=== PATIENT | male | born 1985 | race Caucasian/White ===

== ENCOUNTER → 2023-12-20 01:46 | Outpatient (CLI) | payer OTHER, SELFPAY ==
--- NOTE | 2023-12-20 11:34 | DI.RAD_ITS ---
Exam(s) XR KNEE LT 2V AP,LAT EXAM: XR KNEE LT 2V AP,LAT CLINICAL HISTORY: [id number], LT KNEE PAIN. TECHNIQUE: 2D digital imaging was performed. COMPARISON: No exams were available for comparison FINDINGS: Two views. No evidence of fracture. Small amount of increased joint fluid noted. Bone density normal. No osse ous lesions. No osteochondral defects. No significant joint space narrowing. IMPRESSION: No acute osseous findings on these two views. There does appear to be a small amount of increased fabiano int fluid which may signify an internal derangement DATA REPOSITORY: RADIATION DOSE DELIVERED:
== END ==
PROVIDERS: Visit Provider Internal Medicine
DX: M25.562 Pain in left knee (principal); M25.40 Effusion, unspecified joint
CPT/HCPCS: 73560

== ENCOUNTER 2024-07-02 02:49 | Outpatient (CLI) | payer OTHER, SELFPAY ==
--- NOTE | 2024-07-02 | DI.MRI_ITS ---
Exam(s) MR CERVICAL SPINE WO EXAM: MR CERVICAL SPINE WO CLINICAL HISTORY: CO AUTH# [id number] CERVICALGIA M54.2 BILAT HAND/NUMBNESS/TINGLING TECHNIQUE: Multiplanar multisequence MRI of the cervical spine was performed without intravenous con trast. COMPARISON: No exams were available for comparison FINDINGS: BONES: Vertebral body heights are maintained. Intervertebral disc spaces are normal. Alignment is nor mal. Bone marrow signal intensity is within normal limits. CERVICAL CORD: Craniovertebral junction is unremarkable. The cervical cord is normal size and signal intensity. SOFT TISSUES: Unremarkable. C2-3: No disc herniation or bulge is identified. No significant central spinal canal or neural forami nal stenosis. C3-4: There is a mild diffuse disc bulge. No significant central spinal canal or neural foraminal st enosis C4-5: There is a small central disc herniation. No significant central spinal canal or neural forami nal stenosis C5-6: There is prominence of the osteophyte disc complex at this level. There is some effacement of the anterior subarachnoid space. The AP diameter of the spinal canal is 9 mm compared to 1.2 cm at t he level above. No significant central spinal canal or neural foraminal stenosis C6-7: There is a moderate-sized central disc herniation. There is effacement of the anterior subarac hnoid space and flattening of the anterior aspect of the spinal cord. There is normal signal in the spinal cord. The AP diameter of the spinal canal is 7 mm this compares to 1.2 cm at the level below. No significant neural foraminal stenosis is present. C7-T1: There is a small central disc herniation. No significant central spinal canal or neural odell inal stenosis IMPRESSION: 1. Moderate size disc herniation at C6-C7 causing central spinal canal stenosis with effacement of th e anterior subarachnoid space and flattening of the anterior spinal cord at this level. There is nor mal signal in the spinal cord. 2. Prominence of the osteophyte disc complex at C5-C6 causing mild narrowing of the central spinal ca nal. DATA REPOSITORY:
== END 2024-07-02 03:09 ==
PROVIDERS: Visit Provider Internal Medicine
DX: M48.02 Spinal stenosis, cervical region (principal)
CPT/HCPCS: 72141